=== PATIENT | male | born 1975 | race Caucasian/White ===

== ENCOUNTER 2023-08-27 05:52 | Day surgery (SDC) | payer OTHER, SELFPAY ==
[2023-08-18 08:00] VITALS: BMI 39.3
[2023-08-18 08:09] LABS: % Basophils 0.3 % (0-2); % Immature Granulocytes 0.7 % (0-0.5); % Lymphocytes 28.3 % (20.5-51.1); % Monocytes 9.3 % (1.7-9.3); % Neutrophils 61.4 % (42.2-75.2); Absolute Immature Granulocytes 0.1 10^3/uL (0-0.05); Absolute Lymphocytes 2.2 10^3/uL (1.2-3.4); Absolute Monocytes 0.7 10^3/uL (0.1-0.6); Absolute Neutrophils 4.7 10^3/uL (1.4-6.5); Hematocrit 46.8 % (39.0-52.0); Hemoglobin 16.3 g/dL (13.0-18.0); Mean Corp Hgb Conc. 34.8 g/dL (33.0-37.0); Mean Corpuscular Volume 89.1 fL (80.0-94.0); Mean Platelet Volume 9.3 fL (7.4-10.4); Nucleated Red Blood Cells % 0 % (-); Platelet Count 194 10^3/uL (130-400); Red Blood Cell Count 5.25 10^6/uL (4.70-6.10); Red Cell Dist. Width 11.9 % (11.5-14.5); White Blood Cell Count 7.6 10^3/uL (4.8-10.8)
[2023-08-18 08:19] LABS: INR 1.09; PT 13.9 Sec (11.4-14.6)
[2023-08-18 08:22] LABS: ALT (SGPT) 25 U/L (0-50); AST (SGOT) 25 U/L (17-59); Albumin 4.1 g/dl (3.5-5.0); Alkaline Phosphatase 54 U/L (38-126); Blood Urea Nitrogen 32 mg/dl (9-20); Calcium 9.1 mg/dl (8.4-10.2); Carbon Dioxide 30 mmol/L (22-30); Chloride 102 mmol/L (98-107); Estimated Creatinine Clearance > 125 ml/min; Glucose 104 mg/dl (70-99); Potassium 4.5 mmol/L (3.5-5.1); Sodium 134 mmol/L (135-145); Total Bilirubin 0.9 mg/dl (0.2-1.3); Total Protein 6.6 g/dl (6.3-8.2); eGFR > 60.00
--- NOTE | 2023-08-19 13:18 | W.PN.UPDATE ---
Update Note
Progress Note Update
Incidental pulmonary nodules noted on CT-faxed to pCP-Dr. Maldonado--patient made aware.
[2023-08-27] VITALS (21 sets, daily range): BP systolic 106–155; BP diastolic 53–88
[2023-08-27] MEDS: TYLENOL 1000 MG PO (07:03)
[2023-08-27] MEDS: TRANSDERM-SCOP 1 PATCH TRANSDERM (07:13)
--- NOTE | 2023-08-27 10:56 | ITS.CL.ABL ---
Foreign Correspondent - Ablation
Ablation
Procedure Report:
Primary Layout Designer: Cogn Jordan MD
Procedure Date: 08/27/2023
Procedure
Electrophysiology Study, with RA, CS pacing and recording
Radiofrequency Ablation of Counterclockwise Cavotricuspid Isthmus-dependent Right Atrial Flutter
Three-dimensional Electroanatomic Mapping and Navigation
Patient History
See H&P for complete details
Patient is a pleasant 48-year-old male with a past medical history significant for REUBEN with oral appliance, hypertension, obesity, paroxysmal typical atrial flutter. ECG in office demonstrated typical atrial flutter.
Method
After informed consent was obtained, the patient was brought to the EP lab in a post-absorptive, non-sedated state. A peripheral IV was in place. Continuous electrocardiography, blood pressure and pulse oximetry monitoring were initiated and
cardioversion / defibrillator patch electrodes were positioned on the chest in an anterior-posterior orientation. Sedation was administered via the anesthesia services. A time-out was called. Local anesthesia was administered at the right and left
femoral vein access sites. Vascular access was achieved using modified Seldinger technique, and 3 sheaths were placed.
The patient entered the room in sinus rhythm. A multipolar catheter were advanced to the coronary sinus. A mapping / ablation catheter was used to record and pace. Intracardiac ultrasound (ICE) was utilized for structural assessment and monitoring.
Tachycardia induction was attempted, however, patient was non-inducible for tachycardia despite multiple protocols. Clockwise and counterclockwise trans-isthmus times were established with pacing from the CS catheter and ablation catheter,
respectively.
Three-dimensional electroanatomic mapping was utilized. Catheter ablation in the right atrium was performed as described below. Induction was once more attempted but unsuccessful. Ablation was performed creating a line from the tricuspid valve
annulus to the IVC-RA junction. Clockwise and counterclockwise trans-isthmus times were determined, and RA activation patterns confirmed bidirectional block. Interval measurements in NSR were made. A waiting period was observed, after which the
procedure was concluded. Following waiting period, clockwise and counterclockwise trans-isthmus times were re-assessed and demonstrated persistent bidirectional block. Split potentials were noted along the ablation line. Arrhythmia induction once
more attempted and patient remained non-inducible.
At the end of the procedure, all catheters and sheaths were removed, hemostasis was assured in the standard fashion (figure of 8 suture and manual pressure), and the patient was taken to the recovery area in stable condition.
Conduction Intervals (pre-ablation, in ms)
A-A P-R QRS dur Q-T QTc R-R
946 180 [phone]
Conduction Intervals (post-ablation, in ms)
A-A P-R QRS dur Q-T QTc R-R
917 152 104 [phone]
AV Conduction:
AVWB at 570 ms (pre) 490 ms (post)
AV Node ERP 500/400
No arrhythmia was inducible post ablation
Mapping and Ablation
Utilizing electroanatomic three-dimensional navigation, a 3.5 mm tip [employer] irrigated ablation catheter was advanced to the right atrium with the assistance of an 11.5 Fr Agilis steerable long sheath. An electroanatomic three-dimensional map
of the right atrium was constructed, with careful attention to anatomic landmarks, including the coronary sinus, IVC-RA and SVC-RA junction, tricuspid valve annulus, and region of the His bundle electrogram.
An ablation line was created from the tricuspid annulus to the IVC in the 6:00 position (NOY clock). Power was titrated between 30 and 40 Brandt. The patient's atrial flutter remained non-inducible during procedure. The line was completed during
CS pacing, and bidirectional block was achieved. The ablation line was mapped to ensure widely spaced double potentials, and after a 30 minute waiting period, bidirectional block persisted.
Ablation Summary
Total ablation time: 10 minutes 54 seconds
Estimated Blood Loss
<15 mL
Fluoroscopy Time 1.5
Radiation Dose 14.39 mGy
Complications
None
Conclusions
1. Successful ablation of the cavotricuspid isthmus with bidirectional block for typical atrial flutter
2. No inducible arrhythmia post-procedure
Recommendations
- Anticipate discharge home today
- Bedrest with straight leg precautions for four hours
- Resume anticoagulation tonight if patient/groins stable; continue for at least 3 mo post procedure
- Continue remaining home medications as indicated
- Follow-up in clinic in 4-6 weeks or sooner if needed
Danny Cardenas,
Clinical Cardiac Electrophysiology
cc: Cong Jordan MD; Cj Maldonado MD
[2023-08-27] MEDS: ANESTHETIC LOZENGE 1 LOZENGE PO (12:06)
--- NOTE | 2023-08-27 16:06 | W.PN.UPDATE ---
Update Note
Progress Note Update
Pt seen post AFlutter ablation. Bilat groin sites without ht/bleeding, non tender. Post EKG SB 50s, no acute changes or arrhythmias. Resume eliquis today, continue other meds as before. Followup with Dr. Jordan as scheduled. Home later today if groin
sites/tele remain stable.
== END 2023-08-27 15:15 | disposition home or self-care (01) ==
LOC: CATH 05:52
PROVIDERS: ATTENDING PHYSICIAN Internal Medicine Cardiovascular Disease; FAMILY PHYSICIAN Internal Medicine; OTHER PHYSICIAN Internal Medicine Cardiovascular Disease
DX: I48.3 Typical atrial flutter (principal); R07.89 Other chest pain; R06.02 Shortness of breath; R00.2 Palpitations; R42 Dizziness and giddiness; R55 Syncope and collapse; R53.83 Other fatigue; Z79.01 Long term (current) use of anticoagulants; I10 Essential (primary) hypertension; E66.01 Morbid (severe) obesity due to excess calories; Z68.39 Body mass index [BMI] 39.0-39.9, adult; G47.33 Obstructive sleep apnea (adult) (pediatric); Z85.850 Personal history of malignant neoplasm of thyroid; E89.0 Postprocedural hypothyroidism; R91.8 Other nonspecific abnormal finding of lung field
CPT/HCPCS: 93662; C1894; C1766; C2630; C1759; 36415; 75572; 76937; 80053; 83735; 85025; 85610; 86850; 86900; 86901; 93005; 93653; Q9967